=== PATIENT | male | born 1955 | race Caucasian/White ===

== ENCOUNTER 2017-08-07 06:24 | Day surgery (SDC) | payer BC ==
[2017-08-07] MEDS ORDERED: Lidocaine 1% 50 ML MDV ONE (06:39)
[2017-08-07] MEDS ORDERED: Bacitracin Oint 1 GM U/D Packet ONE (06:39)
[2017-08-07] MEDS ORDERED: Dextrose 5%-Lactated Ringers 1,000 ML IV SCH (07:00)
[2017-08-07] MEDS ORDERED: ceFAZolin 2 GM in Premix Bag 1 BAG IV SCH (07:30)
[2017-08-07] MEDS ORDERED: ceFAZolin 2 GM in Sodium Chloride 0.9% 50 ML IV ONE (07:30)
[2017-08-07] MEDS ORDERED: Bupivacaine 0.5% 50 ML MDV ONE (08:04)
[2017-08-07] MEDS ORDERED: Propofol 200 MG/20 ML SDV ONE (08:04)
[2017-08-07 09:02] VITALS: BP 163/93
--- NOTE | 2017-08-12 12:12 | OR ---
DATE OF PROCEDURE: 08/07/2017 PREOPERATIVE DIAGNOSIS: Foreign body, right index finger. POSTOPERATIVE DIAGNOSIS: Foreign body, right index finger at a plane posterior to the extensor tendon. OPERATIVE PROCEDURE: Removal of metallic foreign body, right index finger ([id number]). ANESTHESIA: Digital block. INDICATION FOR PROCEDURE: A 62-year-old male presenting with a metallic foreign body in his right index finger. This was found in radial aspect, more or less even with the proximal interphalangeal joint. Plan is to proceed with removal of this under fluoroscopic guidance. Potential risks including bleeding, infection, injury to nerve or tendons in the area were all gone over, and the patient wishes to proceed. DETAILS OF PROCEDURE: The patient was taken to the operating room and placed in a supine position. The auditing control clerk was in attendance, in the event that some sedation was required, but the patient did not require any. A digital block using 1% plain lidocaine was then placed on the base of the finger, which was then prepped and draped. The optimal point of approach to the small BB sized metallic foreign body was then identified fluoroscopically. A small stab wound over this was then made, and using mosquito forceps, the foreign body was removed. This appeared to be somewhat anterior to the middle lateral aspect of the finger underneath the extensor tendon. This was removed, and at that point, fluoroscopic confirmation of all metal being removed was undertaken. A Band-Aid was applied. The patient was taken to the recovery room in satisfactory condition. The patient is up to date on tetanus shot, and he will be following up with Surgery at this point on a p.r.n. basis. Ajay Rodriguez MD /[id number]
== END 2017-08-07 09:20 | disposition home or self-care (01) ==
LOC: JP.SDS 06:24
PROVIDERS: ATTEND Surgery
DX: S61.240A Puncture wound with foreign body of right index finger without damage to nail, initial encounter (principal)
CPT/HCPCS: 20525; 76000; J0690; J7050; J2704

== ENCOUNTER 2021-03-13 07:24 | Day surgery (SDC) | payer BC, MEDICARE ==
[2021-03-13] MEDS ORDERED: fentaNYL 100 MCG/2 ML SDV ONE (07:45)
[2021-03-13] MEDS ORDERED: Propofol 200 MG/20 ML SDV ONE (07:45)
[2021-03-13] MEDS ORDERED: Midazolam 1 MG/ML 2 ML SDV ONE (07:46)
[2021-03-13] MEDS ORDERED: Dextrose 5%-Lactated Ringers 1,000 ML IV SCH (08:30)
[2021-03-13 10:38] VITALS: BP 129/78; PULSE 73
--- NOTE | 2021-04-01 16:11 | OR ---
DATE OF PROCEDURE: 03/13/2021 SURGEON: Ajay Rodriguez MD PREOPERATIVE DIAGNOSIS: History of colonic diverticulitis. POSTOPERATIVE DIAGNOSES: 1. Minimal diverticulosis with no current inflammation. 2. Small colon polyps involving mid sigmoid colon and mid rectum. OPERATIVE PROCEDURE: Flexible colonoscopy with polypectomy by snare technique x2. ANESTHESIA: IV sedation. INDICATIONS FOR PROCEDURE: This is a 65-year-old male presenting for followup colonoscopy. He had a history of diverticulitis confirmed by CT scan and he has completed a course of oral Augmentin. He is feeling fairly good at this point with no abdominal pain. The plan is to proceed with a flexible colonoscopy with biopsies and/or polypectomy as indicated. Potential risks including bleeding and perforation were discussed, and the patient wishes to proceed. DETAILS OF PROCEDURE: The patient was taken into the operating room, placed in a left lateral decubitus position. IV sedation was administered, after which the initial digital rectal exam was performed and was unremarkable. Colonoscope was then passed to the level of the cecum. The prep was generally good. There was only a small amount of liquid stool present. The patient had some scattered diverticula in the left colon. These were otherwise uncomplicated. There was no mucosal inflammation evident at this point. Diverticulitis appeared to be fully resolved. Apart from that, there were no areas of colitis and two small polyps were identified, one in the mid sigmoid colon and one in the mid rectum. Both of these were excised by means of cautery snare technique and were delivered for histologic evaluation. The procedure was then concluded. The patient was taken to the recovery room in satisfactory condition. At this point, the patient should likely undergo a followup colonoscopy in three years assuming one or both of the polyps is adenomatous in nature. Ajay Rodriguez MD /[id number]
== END 2021-03-13 10:30 | disposition home or self-care (01) ==
LOC: JP.SDS 07:24
PROVIDERS: ATTEND Surgery
DX: Z12.11 Encounter for screening for malignant neoplasm of colon (principal); K63.5 Polyp of colon; K62.1 Rectal polyp; Z87.19 Personal history of other diseases of the digestive system; K57.30 Diverticulosis of large intestine without perforation or abscess without bleeding; E66.9 Obesity, unspecified; Z68.33 Body mass index [BMI] 33.0-33.9, adult
CPT/HCPCS: 45385; 88305; J2250; J2704; J3010; J7121

== ENCOUNTER 2024-05-18 06:41 | Day surgery (SDC) | payer MEDICARE, BC ==
[2024-05-18] MEDS ORDERED: Propofol 200 MG/20 ML SDV ONE (07:18)
[2024-05-18] MEDS ORDERED: fentaNYL 50 MCG/ML SDV ONE (07:18)
[2024-05-18] MEDS ORDERED: Midazolam 1 MG/ML 2 ML SDV ONE (07:18)
[2024-05-18] MEDS: Sodium Chloride 0.9% 1,000 ML IV SCH (07:23)
[2024-05-18 09:37] VITALS: BP 128/97; PULSE 67
== END 2024-05-18 09:50 | disposition home or self-care (01) ==
LOC: JP.SDS 06:41
PROVIDERS: ATTEND Surgery
DX: Z12.11 Encounter for screening for malignant neoplasm of colon (principal); D12.0 Benign neoplasm of cecum; K57.30 Diverticulosis of large intestine without perforation or abscess without bleeding; F17.220 Nicotine dependence, chewing tobacco, uncomplicated
CPT/HCPCS: 00811; 45380; J2250; J2704; J3010; J7030